=== PATIENT | female | born 1975 | race American Indian/Alaskan Native ===

== ENCOUNTER 2017-10-06 05:59 | Day surgery (SDC) | payer OTHER ==
[2017-10-06] MEDS ORDERED: ANCEF/STERILE WATER 2 GM/20 ML IV NR (07:00)
[2017-10-06] MEDS ORDERED: XYLOCAINE MPF 2% ONE (07:15)
[2017-10-06] MEDS ORDERED: DILAUDID ONE (07:16)
[2017-10-06] MEDS ORDERED: DIPRIVAN 10 MG/ML IV ONE (07:16)
[2017-10-06 07:28] LABS: Hematocrit 31.8 % (30.3-42.9); Hemoglobin 9.7 gm/dl (10.1-14.3)
[2017-10-06] MEDS ORDERED: XYLOCAINE 1% 20 mL ONE (07:36)
[2017-10-06] MEDS ORDERED: MARCAINE 0.25% INFILTRATI ONE ×2 (07:36→08:36)
[2017-10-06] MEDS ORDERED: VERSED IV NR (08:00)
[2017-10-06] MEDS ORDERED: SUBLIMAZE IV PRN (08:00)
[2017-10-06] MEDS ORDERED: LACTATED RINGERS 1,000 ML IV SCH (08:00)
[2017-10-06] MEDS ORDERED: TRANSDERM-SCOP TD NR (08:00)
--- NOTE | 2017-10-06 08:10 | Short Stay Summary ---
Short Stay Documentation Date of service: 10/06/17 - History H&P: obtained from office - Allergies and Medications Current Medications: Allergies No Known Allergies Allergy (Verified 10/04/17 11:59) Home Medications Medication Instructions Recorded Confirmed Last Taken Type Ferrous Sulfate [Iron] 325 mg PO DAILY 10/04/17 10/04/17 10/05/17 History Multivitamin [Multiple Vitamins] 1 each PO DAILY 10/04/17 10/04/17 10/05/17 History Active Medications Cefazolin Sodium (Ancef/Sterile Water 2 Gm/20 Ml) 2 gm IV PREOP NR Stop: 10/06/17 23:45 Fentanyl (Sublimaze) 50 mcg IV Q15MIN PRN PRN Reason: Pain , Severe (7-10) Lactated Ringer's (Lactated Ringers) 1,000 mls @ 100 mls/hr IV DIRECT DEISI Last Admin: 10/06/17 08:02 Dose: 100 mls/hr Midazolam HCl (Versed) 2 mg IV PREOP NR Stop: 10/06/17 23:59 Last Admin: 10/06/17 08:03 Dose: 2 mg Scopolamine (Transderm-Scop) 1 each TD PREOP NR Stop: 10/06/17 12:00 Last Admin: 10/06/17 08:03 Dose: 1 each - Brief post op/procedure progress note Date of procedure: 10/06/17 Pre-op diagnosis: 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 Post-op diagnosis: same Procedure: Left breast fibroadenoma excisional biopsy of the lower outer quadrant Anesthesia: GETA Findings: Left breast fibroadenoma at the 6:00 NAC Surgeon: TAYLOR CAMPOS Estimated blood loss: minimal Pathology: list (fibroadenoma) Specimen disposition: to lab Condition: stable - Disposition Condition at discharge: Good Disposition: DC-[id number] TO HOME OR SELFCARE Short Stay Discharge Plan Activity: other (no heavy lifting) Diet: regular Wound: other (keep incision clean and dry and may shower in 24 hours; no baths, pools or lakes; do not rub or scrub incision; wear breast binder) Follow up with: RUDY SOLARES MD [Primary Care Provider] - 7 Days TAYLOR CAMPOS MD [Staff Physician] - 7 Days Prescriptions: HYDROcodone/APAP 5-325 [[place] 5/325] 1 each PO Q6HR PRN #30 tablet PRN Reason: Pain
--- NOTE | 2017-10-06 08:12 | Operative Report ---
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 Findings: Known left breast fibroadenoma at the 6 o'clock position NAC with excisional biopsy performed Complications: None Drains: None Estimated blood loss: Minimal Disposition: PACU in good condition Indication for operative procedure: This is a 42-year-old lady with known left breast fibroadenoma at the 6:00 position NAC. Recommendation was to proceed with left breast excisional biopsy of fibroadenoma given size. Patient wished to proceed with the above procedure. The patient was procedure in detail: The patient was taken to the operating room and was laid supine. General anesthesia was administered. The left breast fibroadenoma was palpable at the 6 o'clock position NAC, prior reduction mammplasty incision noted. The left breast was prepped and draped in the normal sterile operative fashion. Timeout was performed. Ultrasoudn used to for surgical planning. A periareolar breast incision was made with a 15 blade knife at the 6:00 position with dissection taken down to the subcutaneous tissues. The fibroadenoma was encountered and was dissected free with the aid of the Bovie cautery. The specimen was sent to pathology. Radiograph specimen with clip and mass present. Hemostasis was then obtained using the Bovie cautery. The breast cavity was irrigated and suctioned. The deep breast tissues were approximated and closed using interrupted 3-0 Vicryl and skin brought together and closed using a running 4-0 Monocryl followed by skin affix. She tolerated surgery very well and was awakened from anesthesia without any complication and transported to PACU in good condition.
[2017-10-06] MEDS ORDERED: ZOFRAN ONE (08:21)
[2017-10-06] MEDS ORDERED: DECADRON ONE (08:21)
--- NOTE | 2017-10-06 08:35 | Anesthesia Day of Surgery ---
Anesthesia Day of Surgery - Day of Surgery Patient Examined: Yes Patient H&P Reviewed: Yes Patient is NPO: Yes
--- NOTE | 2017-10-06 08:35 | Anesthesia Consultation ---
Anesthesia Consult and Med Hx Date of service: 10/06/17 - Airway Anesthetic Teeth Evaluation: Good ROM Head & Neck: Adequate Mental/Hyoid Distance: Adequate Mallampati Class: Class II - Pulmonary Exam CTA: Yes - Cardiac Exam Cardiac Exam: RRR - Pre-Operative Health Status ASA Pre-Surgery Classification: ASA2 Proposed Anesthetic Plan: General - Pulmonary Hx Smoking: No Hx Asthma: No SOB: No - Cardiovascular System Hx Hypertension: No Hx Heart Attack/AMI: No - Central Nervous System Hx Seizures: No CVA: No - Gastrointestinal Hx Gastroesophageal Reflux Disease: No - Endocrine Hx Renal Disease: No Hx Liver Disease: No Hx Insulin Dependent Diabetes: No Hx Non-Insulin Dependent Diabetes: No Hx Thyroid Disease: No - Other Systems Hx Alcohol Use: No Hx Substance Use: No Hx Cancer: No Hx Obesity: Yes - Additional Comments Anesthesia Medical History Comments: Hx PONV with prior anesthetics.
[2017-10-06] MEDS ORDERED: XYLOCAINE 1% 20 mL INFILTRATI ONE (08:36)
[2017-10-06] MEDS ORDERED: NACL 0.9% IR ONE (08:45)
--- NOTE | 2017-10-06 10:55 | Post Anesthesia Evaluation ---
- Post Anesthesia Evaluation Patient Participated: Yes Airway Patent: Yes Stable Respiratory Function: Yes Nausea/Vomiting: No Temp > 96.8F: Yes Pain Manageable: Yes Adequeate Hydration: Yes Anesthesia Complications: No
--- NOTE | 2017-10-06 12:46 | Mammography Report ---
SPECIMEN RADIOGRAPH LEFT BREAST: 10/06/17 05:59:00 CLINICAL: Surgical excision of mass. FINDINGS: A mass with a localizer clip is identified within the specimen. IMPRESSION: Excision of the targeted lesion.
[2017-10-06 15:59] VITALS: BP 142/94
== END 2017-10-06 11:14 | disposition home or self-care (01) ==
LOC: OR 05:59
PROVIDERS: ATTEND Surgery
DX: D24.2 Benign neoplasm of left breast (principal); R92.0 Mammographic microcalcification found on diagnostic imaging of breast; N64.89 Other specified disorders of breast; E66.9 Obesity, unspecified; Z68.43 Body mass index [BMI] 50.0-59.9, adult; Z79.899 Other long term (current) drug therapy; Z98.891 History of uterine scar from previous surgery; Z98.890 Other specified postprocedural states
CPT/HCPCS: 19120; 36415; 76098; 85014; 85018; 88307; J0690; J1100; J1170; J2250; J2405; J2704; J3010; J7120; 88305